=== PATIENT | female | born 1955 | race Caucasian/White ===

== ENCOUNTER 2018-04-23 07:13 | Emergency (ER) | payer OTHER ==
--- NOTE | 2018-04-23 07:23 | EDM.PDOC ---
ED HPI GENERAL MEDICAL PROBLEM - General Chief Complaint: ENT Problem Stated Complaint: COLD, PINK EYES Time Seen by Provider: 04/23/18 07:18 Source of Information: Reports: Patient, Family, RN, RN Notes Reviewed History Limitations: Reports: No Limitations - History of Present Illness INITIAL COMMENTS - FREE TEXT/NARRATIVE: Pt presents to ER by POV with c/o "major congestion" and possible pink eye. [place], she live in . About 3 days ago she developed a cough with occ. thin yellow sputum production. The left ear feels "muffled and itchy, with a little pain" to her, and she c/o postnasal drip. She denies fever or chills, SOB, or CP. Pt is a attending physician smoker at 1pp. Onset: Gradual Duration: Day(s): (3-4), Constant, Getting Worse Location: Reports: Head, Face, Chest Quality: Reports: Pressure Severity: Moderate Improves with: Reports: None Worsens with: Reports: None Associated Symptoms: Reports: No Other Symptoms Treatments MARKETING RESEARCH INTERN: Reports: Other Medication(s) - Related Data Allergies Allergy/AdvReac Type Severity Reaction Status Date / Time codeine Allergy Hives Verified 04/23/18 07:27 Home Meds: Home Meds Atenolol 25 mg PO DAILY 04/23/18 [History] FLUoxetine [PROzac] 10 mg PO DAILY 04/23/18 [History] HCTZ/Triamterene [Dyazide 25-37.5 MG] 1 ea PO DAILY 04/23/18 [History] Omeprazole Magnesium [Prilosec Otc] 20 mg PO DAILY 04/23/18 [History] Past Medical History HEENT History: Reports: Allergic Rhinitis Cardiovascular History: Reports: Hypertension Respiratory History: Reports: COPD (smokes 1ppd >30yrs) Gastrointestinal History: Reports: GERD Psychiatric History: Reports: Depression Social & Family History - Family History Family Medical History: Noncontributory - Tobacco Use Smoking Status *Q: Current Some Day Smoker Tobacco Use Within Last Twelve Months: Cigarettes Years of Tobacco use: 30 Packs/Tins Daily: 1 - Caffeine Use Caffeine Use: Reports: Coffee - Living Situation & Occupation Living situation: Reports: with Family ED ROS ENT - Review of Systems Review Of Systems: ROS reveals no pertinent complaints other than HPI. ED EXAM, ENT - Physical Exam Exam: See Below Exam Limited By: No Limitations General Appearance: Alert, WD/WN, No Apparent Distress Eye Exam: Right Eye: Normal Inspection, Left Eye: Conjunctival Injection, Bilateral Eye: EOMI, PERRL Ears: Normal External Exam, Normal Canal, Hearing Grossly Normal, TM Bulging ( left), TM Dullness (left), TM Erythema (left), TM Fluid (clear on Rt). No: Mastoid Tenderness, Canal Discharge, TM Blood, TM Perforation Nose: No Blood, Nasal Discharge (purulent on left, clear-yellow on Rt), Injected Turbinates Mouth/Throat: Normal Gums, Normal Lips, Normal Teeth. No: Pharyngeal Erythema ( but with postnasal drip) Head: Atraumatic, Normocephalic Neck: Normal Inspection, Supple, Non-Tender, Full Range of Motion. No: Lymphadenopathy (L), Lymphadenopathy (R) Respiratory/Chest: No Respiratory Distress, Lungs Clear, No Accessory Muscle Use , Decreased Breath Sounds, Other (course breath sounds). No: Crackles, Rales, Rhonchi, Wheezing, Stridor, Pleural Rub Cardiovascular: Normal Peripheral Pulses, Regular Rate, Rhythm, No Edema, No Gallop, No JVD, No Murmur, No Rub GI/Abdominal: Soft, Non-Tender (Female) Exam: Deferred Rectal (Female) Exam: Deferred Extremities: Normal Inspection Neurological: Alert, Oriented, Normal Cognition, Normal Gait, No Motor/Sensory Deficits Psychiatric: Normal Affect, Normal Mood Skin: Warm, Dry, Intact, Normal Color, No Rash Course - Vital Signs Last Recorded V/S: Last Vital Signs Temp 36.9 C 04/23/18 07:24 Pulse 79 04/23/18 07:24 Resp 16 04/23/18 07:24 BP 118/70 04/23/18 07:24 Pulse Ox 94 L 04/23/18 07:24 - Orders/Labs/Meds Orders: Active Orders 24 hr Category Date Time Status Gentamicin [Garamycin 0.3% Ophth Soln] Med 04/23/18 07:48 Once 1 ml EYELF ONETIME ONE cefTRIAXone 1 GM,Lidocaine 1% 2.1 ML Med 04/23/18 07:47 Ordered cefTRIAXone [Rocephin] 1 gm Lidocaine 1% [Xylocaine-MPF 1%] 2.1 ml IM ONETIME Departure - Departure Time of Disposition: 07:56 Disposition: Home, Self-Care 01 Condition: Good Clinical Impression: Acute bacterial conjunctivitis of left eye Otitis media Qualifiers: Otitis media type: suppurative Chronicity: acute Laterality: left Recurrence: not specified as recurrent Spontaneous tympanic membrane rupture: without spontaneous rupture Qualified Code(s): H66.002 - Acute suppurative otitis media without spontaneous rupture of ear drum, left ear Allergic rhinosinusitis Qualifiers: Allergic rhinitis trigger: unspecified Allergic rhinitis seasonality: unspecified seasonality Qualified Code(s): J30.9 - Allergic rhinitis, unspecified - Discharge Information Instructions: Otitis Media, Adult, [id number], Bacterial Conjunctivitis, Allergic Rhinitis, Adult Forms: ED Department Discharge Additional Instructions: Rx: Augmentin 875mg: Take 1 tablet by mouth twice a day for 10 days. Rx: Prednisone 20mg: Take 2 tablets by mouth once a day with a meal for 5 days. Gentamicin ophthalmic solution 0.3%: 1 drop into affected eye(s) four times a day for 5 days. Continue Claritin-D 24HR: 1 tablet daily as needed for congestion. Use over the counter Nasal Saline spray (may refill by mixing 1 cup of tap water with 1/2tsp salt and boil or microwave, refill spray bottle once cooled). Frequent saltwater gargles as needed. Follow up in clinic if not improving in 3 to 5 days. Return to ER if worse at any time. - My Orders Last 24 Hours: My Active Orders 04/23/18 07:47 cefTRIAXone 1 GM,Lidocaine 1% 2.1 ML cefTRIAXone [Rocephin] 1 gm Lidocaine 1% [ Xylocaine-MPF 1%] 2.1 ml IM ONETIME 04/23/18 07:48 Gentamicin [Garamycin 0.3% Ophth Soln] 1 ml EYELF ONETIME ONE - Assessment/Plan Last 24 Hours: My Active Orders 04/23/18 07:47 cefTRIAXone 1 GM,Lidocaine 1% 2.1 ML cefTRIAXone [Rocephin] 1 gm Lidocaine 1% [ Xylocaine-MPF 1%] 2.1 ml IM ONETIME 04/23/18 07:48 Gentamicin [Garamycin 0.3% Ophth Soln] 1 ml EYELF ONETIME ONE
[2018-04-23] MEDS ORDERED: cefTRIAXone 1 GM, Lidocaine 1% 2.1 ML IM ONE ×2 (07:47)
[2018-04-23] MEDS ORDERED: Gentamicin 0.3% Ophth Soln 5 ML Bottle EYELF ONE (07:48)
== END 2018-04-23 08:20 | disposition home or self-care (01) ==
LOC: DL.ED 07:13
DX: H10.32 Unspecified acute conjunctivitis, left eye (principal); H66.002 Acute suppurative otitis media without spontaneous rupture of ear drum, left ear; J30.9 Allergic rhinitis, unspecified; I10 Essential (primary) hypertension; K21.9 Gastro-esophageal reflux disease without esophagitis; F17.210 Nicotine dependence, cigarettes, uncomplicated; Z88.5 Allergy status to narcotic agent; Z79.899 Other long term (current) drug therapy
CPT/HCPCS: 96372; 99282; A9270; J0696